=== PATIENT | male | born 1985 | race Caucasian/White ===

== ENCOUNTER 2021-10-15 18:24 | Emergency (ER) | payer BC | END 2021-10-15 19:04 | disposition home or self-care (01) | LOC: LL.ED 18:24 | DX: S60.211A Contusion of right wrist, initial encounter (principal); W21.07XA Struck by softball, initial encounter | CPT/HCPCS: 73110-RT; 99283 ==

== ENCOUNTER 2022-12-20 12:11 | Emergency (ER) | payer BC ==
[2022-12-20] MEDS: Tetracaine HCl/PF 0.5% 4 ML Bottle EYERT ONE (13:19)
== END 2022-12-20 13:30 | disposition home or self-care (01) ==
LOC: LL.ED 12:11
DX: Z77.098 Contact with and (suspected) exposure to other hazardous, chiefly nonmedicinal, chemicals (principal); H57.89 Other specified disorders of eye and adnexa; Z88.0 Allergy status to penicillin
CPT/HCPCS: 99283; J3490